=== PATIENT | male | born 1935 | race Caucasian/White ===

== ENCOUNTER → 2016-11-08 | Outpatient (CLI) | payer OTHER, MEDICARE ==
[~2016-11-08] MED LIST: ACIPHEX 20 MG T20 MG PO; ADULT LOW DOSE81 MG PO; APAP500 PO; ATENOLOL 25 MG25 M1 PO; BIOTIN5 MG PO; CALCIUM 600 +1 EA13 PO; CELLCEPT500 MG PO; CRESTOR10 MG PO; DESYREL100 MG PO; FISH OIL 1,0001 EAC5 PO; FLOMAX0.4 MG PO; LEXAPRO 10 MG T10 M1 PO; LORTAB 5 MG/5001 TA1 PO; MOBIC15 MG PO; MOBIC7.5 MG PO; NORTRIPTYLINE H25 M3 PO; PLAVIX 75 MG TA75 MG PO; PREDNISONE 5 MG5 M1 PO; PROSCAR 5MG TABL5 MG PO; SIMVASTATIN40 MG PO; SYMBICORT160 MCG/4. INH; TIZANIDINE HCL 22 M1 PO; TRAMADOL 50 MG50 MG PO; TRAZODONE 150150 M1 PO; UNICOMPLEX M TA1 TA1 PO; VESICARE10 M1 PO; VITAMIN D2000 UNIT PO
== END ==
LOC: RAD 14:10
DX: M16.12 Unilateral primary osteoarthritis, left hip (principal); M25.552 Pain in left hip

== ENCOUNTER → 2017-03-03 | Outpatient (CLI) | payer OTHER, MEDICARE | LOC: HYPER 08:29 | DX: I87.2 Venous insufficiency (chronic) (peripheral) (principal); L97.822 Non-pressure chronic ulcer of other part of left lower leg with fat layer exposed; M35.3 Polymyalgia rheumatica; I25.10 Atherosclerotic heart disease of native coronary artery without angina pectoris; M81.0 Age-related osteoporosis without current pathological fracture; J44.9 Chronic obstructive pulmonary disease, unspecified; Z87.891 Personal history of nicotine dependence; Z72.89 Other problems related to lifestyle ==

== ENCOUNTER → 2017-03-04 | Outpatient (CLI) | payer OTHER, MEDICARE | LOC: RAD 12:02 | DX: J98.11 Atelectasis (principal); R06.00 Dyspnea, unspecified; K44.9 Diaphragmatic hernia without obstruction or gangrene ==

== ENCOUNTER → 2017-03-13 | Outpatient (CLI) | payer OTHER, MEDICARE | LOC: RAD 09:04 | DX: R06.00 Dyspnea, unspecified (principal) ==

== ENCOUNTER → 2017-03-17 | Outpatient (CLI) | payer OTHER, MEDICARE ==
--- NOTE | ~2017-03-17 | EKG ---
[address] [address] ELECTROCARDIOGRAM REPORT Name: MONIQUE GOFF Room #: REG CLI Chase#: [id number] Admission: 03/17/17 Attend Phys: Jun Cohen MD Discharge: Date of : 31 Report #: [id number] THIS REPORT FOR: //name// [facility] Test Date: 2017-03-25 Test Time: 06:18:30 Pat Name: MONIQUE GOFF Department: Room: Gender: Refractory Repairer: Aleida : 1935 Requested By: Jun Cohen Order Number: [id number] MD: Arvin Cole Measurements Intervals [place] Rate: 80 P: 70 NC: 192 QRS: -23 QRSD: 143 T: 71 QT: 446 QTc: 515 Interpretive Statements Sinus rhythm Left bundle branch block Compared to ECG 11/07/2014 11:05:30 Left bundle-branch block now present Electronically Signed On 03-26-2017 8:15:49 CDT by Arvin Cole [email or web address] <ELECTRONICALLY SIGNED> By: Arvin Cole MD, [facility] 03/26/17814 7 7 Arvin Cole MD, FAC /EPI
--- NOTE | ~2017-03-17 | EKG ---
[address] [address] ELECTROCARDIOGRAM REPORT Name: MONIQUE GOFF Room #: REG CLAnnamaria Mckenna#: [id number] Admission: 03/17/17 Attend Phys: Jun Cohen MD Discharge: Date of : 33 Report #: [id number] THIS REPORT FOR: //name// [facility] Test Date: 2017-03-25 Test Time: 06:18:30 Pat Name: MONIQUE GOFF Department: Room: Gender: Treasury Associate: Aleida : 1935 Requested By: Jun Cohen Order Number: [id number] MD: Measurements Intervals [place] Rate: 80 P: 70 [place]: 192 QRS: -23 QRSD: 143 T: 71 QT: 446 QTc: 515 Interpretive Statements Sinus rhythm Left bundle branch block Compared to ECG 11/07/2014 11:05:30 Left bundle-branch block now present Electronically Signed On 03-26-2017 8:15:49 CDT by Arvin Cole [email or web address] By: [id number] 7 Epiphany Epiphany, /EPI
== END ==
LOC: HYPER 07:03
DX: I87.2 Venous insufficiency (chronic) (peripheral) (principal); L97.822 Non-pressure chronic ulcer of other part of left lower leg with fat layer exposed; I25.10 Atherosclerotic heart disease of native coronary artery without angina pectoris; M35.3 Polymyalgia rheumatica; Z85.21 Personal history of malignant neoplasm of larynx; M81.0 Age-related osteoporosis without current pathological fracture; J44.9 Chronic obstructive pulmonary disease, unspecified; Z87.891 Personal history of nicotine dependence; Z72.89 Other problems related to lifestyle

== ENCOUNTER → 2017-04-09 | Outpatient (CLI) | payer OTHER, MEDICARE | LOC: HYPER 06:46 | DX: L97.822 Non-pressure chronic ulcer of other part of left lower leg with fat layer exposed (principal); M35.3 Polymyalgia rheumatica; I25.10 Atherosclerotic heart disease of native coronary artery without angina pectoris; M81.0 Age-related osteoporosis without current pathological fracture; J44.9 Chronic obstructive pulmonary disease, unspecified; Z87.891 Personal history of nicotine dependence; Z72.89 Other problems related to lifestyle ==

== ENCOUNTER → 2017-05-21 | Outpatient (CLI) | payer OTHER, MEDICARE | LOC: CAT 13:38 | DX: J84.9 Interstitial pulmonary disease, unspecified (principal); J84.10 Pulmonary fibrosis, unspecified; I77.6 Arteritis, unspecified ==

== ENCOUNTER → 2017-06-17 | Outpatient (CLI) | payer OTHER, MEDICARE ==
[2017-06-17 10:53] VITALS: BP 120/72
== END ==
LOC: PUL 10:24
DX: J84.10 Pulmonary fibrosis, unspecified (principal)

== ENCOUNTER → 2017-08-22 | Outpatient (CLI) | payer OTHER, MEDICARE ==
[~2017-08-22] VITALS: Ht 172.7 cm; Wt 77.7 kg
[~2017-08-22] MED LIST changes: +IRON325 PO; +PREDNISONE 10 M10 MG PO; +TENORMIN25 MG PO; -TRAZODONE 150150 M1 PO; +TRAZODONE HCL50 MG PO; +TROSPIUM CHLORI20 MG PO; +ZANTAC 150MG T150 MG PO; +ZOLOFT25 MG PO
--- NOTE | ~2017-08-22 | HPC ---
[facility] [address] [place] [address] PAIN MANAGEMENT CONSULTATION Name: MONIQUE GOFF Eda Room #: REG [facility] Clarisa#: [id number] Admission: 08/22/17 Attend Phys: Chandan Das DO Discharge: Date of : 33 Report #: [id number] THIS REPORT FOR: //name// CC: Austin Das The patient is an 82-year-old gentleman, prior seen in pain clinic nearly a year and a half ago in 05/2016. Diagnosed prior with axial back pain with compression fractures. Had osteoplasties, I believe, at L3, T11 and T12. He had ongoing spinal stenosis actually fairly severe at L4-L5. Appeared to have old compression fracture at L5. I did an epidural injection at L4 with excellent improvement of ongoing back pain and neurogenic claudication type symptoms. He returns to pain clinic today again noting that prior injection had afforded good relief. He is starting to develop increasing pain that is a little different, it is more in the left flank at L4-L5 area, appears to be a little lateral for what I would think compression fracture would reproduce; however, given the prior history, this is an obvious concern. He has significant pulmonary disease as he continued on a baseline of inhaled steroid. He has had oral steroids over time. He notes the pain is a 5 on a VAS, exacerbated with getting out of the car and standing. He gets some relief with heat and ice. He notes he is significantly limited in his functional status. Prior, he had been extremely jewish about exercise, now he is developing neurogenic claudication again as well as significant limitation and function due to his pulmonary status. PHYSICAL EXAMINATION: Shows 82-year-old gentleman, BMI is 26.1 kg/m2. Blood pressure is 133/81, pulse 79 and respiratory rate 16. Presently, room air oxygen saturation is 96%. He carries a pulse oximeter with him. He notes that if he walks more than about 3-5 blocks, saturations decreased to the high 80s. Rises from chair using armrest. Does have a little thoracic kyphosis. Thoracic and lumbar range of motion exacerbates some pain, though no midline tenderness is noted. He is tender in the left paravertebral muscles again from about L4 down. Lower extremity strength is about 4/5 to all muscle groups tested. Straight leg raise is negative, though he does have axial back pain with resistance testing on the left side. Negative Greyson test, negative Gaenslen test. No recent diagnostic studies available for evaluation at this time. ASSESSMENT: 1. Symptomatic lumbar radiculopathy, likely component of neurogenic claudication. 2. Component of left flank pain/axial back pain, may be a component of myofascial versus lumbar spondylitic. 3. History of vertebral compression fractures. [facility] [address] [place] [address] PAIN MANAGEMENT CONSULTATION Name: MONIQUE GOFF Room #: REG CLAnnamaria Mckenna#: [id number] Admission: 08/22/17 Attend Phys: Chandan Das DO Discharge: Date of : 33 Report #: [id number] RECOMMENDATIONS: After a long discussion with the patient, we elected to repeat MRI of the lumbar spine. His prior presentation when he had compression fractures at T11, T12 and L3 was not classic at all. I am hopeful that if there is an early compression fracture noted, we can get this addressed. If, however, there are no acute compression fractures, we can move forward with either epidural injection under fluoroscopy for consideration for neurogenic claudication component or facet injections for lumbar spondylosis and facet mediated pain. Thanks for allowing me to participate in the patient's care. He was seen for prolonged visit. About 25 minutes were spent reviewing his medical history, physical exam and interval health history. Greater than 50% of the time was spent in counseling the patient. Ordered MRI of the lumbar spine. We will follow up next week for interventional therapy as indicated. <ELECTRONICALLY SIGNED> By: Chandan Das DO 08/25/17 0816 1241 [id number] Chandan Das DO /nt
[2017-08-22 14:29] VITALS: BP 133/81
== END ==
LOC: PAIN 06:53
DX: M54.16 Radiculopathy, lumbar region (principal); Z87.81 Personal history of (healed) traumatic fracture

== ENCOUNTER → 2017-08-25 | Outpatient (CLI) | payer OTHER, MEDICARE | LOC: MRI 07:33 | DX: M54.16 Radiculopathy, lumbar region (principal); M51.27 Other intervertebral disc displacement, lumbosacral region; M47.896 Other spondylosis, lumbar region; M47.897 Other spondylosis, lumbosacral region; I77.6 Arteritis, unspecified ==

== ENCOUNTER → 2017-08-28 | Outpatient (CLI) | payer OTHER, MEDICARE ==
[~2017-08-28] VITALS: Ht 167.6 cm; Wt 77.2 kg
--- NOTE | ~2017-08-28 | HPC ---
[facility] [place] [address] PAIN MANAGEMENT CONSULTATION Name: MONIQUE GOFF Eda Room #: REG Annamaria Mckenna#: [id number] Admission: 08/28/17 Attend Phys: Chandan Das DO Discharge: Date of : 33 Report #: [id number] THIS REPORT FOR: //name// CC: Austin Das HISTORY OF PRESENT ILLNESS: The patient is a very pleasant 82-year-old gentleman, prior seen for symptomatic lumbar radiculopathy secondary to spinal stenosis, axial back pain and history of vertebral compression fractures. He had prior been seen back in 2015, given epidural injection with ongoing improvement of radicular pain. He subsequently has had multiple compression fractures, osteoplasties, I believe, at T10 and L3. Old compression fractures at L1 and L2. He was seen in the pain clinic 08/22/2017 after a fairly long hiatus. He notes pain has recurred in the low back. It was radiating down around the left low back and in L3 distribution pattern in the back, with some going into the groin. He is noticing neurogenic claudication symptoms. With his history of compression fractures, which initially had a fairly benign presentation, I did order another MRI; this was accomplished, 08/25/2017. This image was compared to the prior study from 04/29/2016. Findings had noted the aforementioned L3 osteoplasty and the old L1 and L2 compression fractures (T11 old osteoplasty). Has fairly significant loss of disk height at L3-L4, severe left greater than right neural foraminal stenosis with significant DJD at this level. Bilateral neural foraminal stenosis below this at L4-L5 and L5-S1 as well; the latter 2 were greater right than left. I reviewed the findings with the patient today. After a long discussion, we elected to proceed with left L3-L4 transforaminal epidural injection to help with the left L3 radicular pain pattern. Follow up in 3 weeks for evaluation. May consider midline epidural injection if this does not afford adequate relief. ASSESSMENT: Symptomatic lumbar radiculopathy, left L3 pattern. RECOMMENDATION: Left L3-L4 transforaminal epidural injection under fluoroscopy today. PROCEDURE: Transforaminal lumbar epidural injection under fluoroscopy. PROCEDURE NOTE: After both written and informed consent was obtained including risk of spinal cord damage, infection, increased pain and paralysis, the patient agreed to proceed. The patient was taken to the fluoroscopy suite, placed in a prone position with appropriate abdominal bolstering. After sterile prep with ChloraPrep and sterile drape, a skin wheal with 1% Xylocaine was raised. A 22 gauge 4-1/2 inch epidural Tuohy needle was inserted. From an oblique approach [address] [address] PAIN MANAGEMENT CONSULTATION Name: MONIQUE GOFF Room #: REG YASH Mckenna#: [id number] Admission: 08/28/17 Attend Phys: Chandan Das DO Discharge: Date of : 33 Report #: [id number] into the posterior-superior aspect of the left L3-L4 neural foramen with continuous pressure on the glass syringe plunger for loss of resistance. Glass syringe was filled with 2 cc of 0.1 Xylocaine. The glass loss of resistance syringe was removed. A low volume extension tubing was connected, negative aspiration was accomplished for cerebrospinal fluid or blood. 1 mL of Omnipaque was injected which showed spread both within the epidural space and laterally along the nerve root. This was followed with 80 mg of triamcinolone plus 1 mL of 1.5% preservative-free Xylocaine. Needle was partially withdrawn, 0.5 mL of Xylocaine was injected to clear the needle and the needle was removed. The area was cleansed, band-aid was applied. The patient was allowed to ambulate to the recovery room, discharged in good and stable condition. <ELECTRONICALLY SIGNED> By: Chandan Das DO 08/29/17 0725 0858 1008 Chandan Das DO /nt
[2017-08-28 08:28] VITALS: BP 131/75
== END | disposition home or self-care (01) ==
LOC: PAIN 06:40
DX: M54.16 Radiculopathy, lumbar region (principal); M48.061 Spinal stenosis, lumbar region without neurogenic claudication; Z98.890 Other specified postprocedural states

== ENCOUNTER → 2017-12-23 | Outpatient (CLI) | payer OTHER, MEDICARE ==
[~2017-12-23] MED LIST changes: -IRON325 PO; -PREDNISONE 10 M10 MG PO; -TENORMIN25 MG PO; +TRAZODONE 150150 M1 PO; -TRAZODONE HCL50 MG PO; -TROSPIUM CHLORI20 MG PO; -ZANTAC 150MG T150 MG PO; -ZOLOFT25 MG PO
== END ==
LOC: MRI 07:45
DX: M47.896 Other spondylosis, lumbar region (principal); M48.061 Spinal stenosis, lumbar region without neurogenic claudication; M46.06 Spinal enthesopathy, lumbar region; M25.78 Osteophyte, vertebrae; N28.1 Cyst of kidney, acquired

== ENCOUNTER → 2017-12-25 | Outpatient (CLI) | payer OTHER, MEDICARE ==
[~2017-12-25] VITALS: Ht 170.2 cm; Wt 74.9 kg
[~2017-12-25] MED LIST changes: +PREDNISONE 10 M10 MG PO; +TENORMIN25 MG PO; +ZOLOFT25 MG PO
--- NOTE | ~2017-12-25 | HPC ---
[facility] [place] [place] [address] PAIN MANAGEMENT CONSULTATION Name: MONIQUE GOFF [facility] [id number] Admission: 12/25/17 Attend Phys: Chandan Das DO Discharge: Date of : 33 Report #: [id number] THIS REPORT FOR: //name// CC: Austin Das PROCEDURE: Transforaminal epidural injection under fluoroscopy. INDICATION: Symptomatic lumbar radiculopathy secondary to spinal stenosis. The patient was given a left L3-L4 transforaminal epidural injection on 08/28/2017, with overall improvement in baseline pain. Pain began to recur. Given his prior history of vertebral compression fractures, he did follow up with Dr. Mayito Ghotra. MRI from 12/23/2017, notes no acute compression fractures. Severe multilevel lumbar spondylosis, findings are not significantly changed from prior study 08/25/2017. Severe spinal stenosis present at L3-L4 and L4-L5. Dr. Ghotra recommended he follow up with me for repeat injection similar to the 08/28/2017, L3-L4 transforaminal epidural injection. The patient returns to pain clinic today, symptoms again are similar, pain in the left low back appears to be neurogenic claudication type scenario. Slight decreased left hip flexion strength. ASSESSMENT: Symptomatic lumbar radiculopathy secondary to spinal stenosis. RECOMMENDATIONS: Left L3-L4 transforaminal epidural injection under fluoroscopy. Follow up simply as needed. PROCEDURE: Transforaminal epidural injection under fluoroscopy. PROCEDURE NOTE: After both written and informed consent was obtained including risk of spinal cord damage, infection, increased pain and paralysis, the patient agreed to proceed. The patient was taken to the fluoroscopy suite, placed in a prone position with appropriate abdominal bolstering. After sterile prep with ChloraPrep and sterile drape, a skin wheal with 1% Xylocaine was raised. A 22 gauge 4-1/2 inch epidural Tuohy needle was inserted. From an oblique approach into the posterior-superior aspect of the left L3-L4 neural foramen with continuous pressure on the glass syringe plunger for loss of resistance. Glass syringe was filled with 2 cc of 0.1 Xylocaine. The glass loss of resistance syringe was removed. A low volume extension tubing was connected, negative aspiration was accomplished for cerebrospinal fluid or blood. 1 mL of Omnipaque was injected which showed spread both within the epidural space and laterally along the nerve root. This was followed with 60 mg of triamcinolone plus 1 mL of 1.5% preservative-free Xylocaine. Needle was partially withdrawn, 0.5 mL of Xylocaine was injected to clear the needle and the needle was removed. The [address] [address] PAIN MANAGEMENT CONSULTATION Name: MONIQUE GOFF Room #: REG CLAnnamaria Mckenna#: [id number] Admission: 12/25/17 Attend Phys: Chandan Das DO Discharge: Date of : 33 Report #: [id number] was cleansed, band-aid was applied. The patient was allowed to ambulate to the recovery room, discharged in good and stable condition. <ELECTRONICALLY SIGNED> By: Chandan Das DO 12/26/17 0656 1307 1342 Chandan Das DO /nt
[2017-12-25 10:50] VITALS: BP 149/92
== END | disposition home or self-care (01) ==
LOC: PAIN 07:16
DX: M48.061 Spinal stenosis, lumbar region without neurogenic claudication (principal); M54.16 Radiculopathy, lumbar region; G89.29 Other chronic pain; Z98.890 Other specified postprocedural states; Z87.891 Personal history of nicotine dependence; Z79.82 Long term (current) use of aspirin; Z79.899 Other long term (current) drug therapy; Z87.09 Personal history of other diseases of the respiratory system

== ENCOUNTER → 2018-05-26 | Outpatient (CLI) | payer OTHER, MEDICARE ==
[~2018-05-26] VITALS: Ht 167.6 cm; Wt 74.5 kg
[~2018-05-26] MED LIST changes: +IRON325 PO; -TRAZODONE 150150 M1 PO; +TRAZODONE HCL50 MG PO; +TROSPIUM CHLORI20 MG PO; +ZANTAC 150MG T150 MG PO
--- NOTE | ~2018-05-26 | HPC ---
[facility] [place] [address] PAIN MANAGEMENT CONSULTATION Name: SHELLMONIQUE Eda [facility] [id number] Admission: 05/26/18 Attend Phys: Wero Das DO Discharge: Date of : 33 Report #: [id number] THIS REPORT FOR: //name// CC: Wero Tian MD DATE OF SERVICE: 05/26/2018 REFERRING PHYSICIAN: Austin Tian MD. CHIEF COMPLAINT: Right low back pain, right lower extremity pain with paresthesias. HISTORY OF PRESENT ILLNESS: As you know, the patient is an 82-year-old male who has been followed by my partner, Dr. Chandan Das, receiving transforaminal epidural injections at the 3-4 level to address ongoing pain issues secondary to severe spinal stenosis at that level. He returns today in followup visit with now onset of right low back pain, right lower extremity pain, for which he places pain score at 5/10. He returns to undergo right L3-L4 transforaminal epidural injection under fluoroscopic guidance as he had noted good benefit with the past transforaminal injection of 12/25/2017 affecting the left side pain. The patient states pain is chronic, describes the pain as sharp, aching, stabbing, numbness and tingling, indicates actively moving and walking exacerbate symptoms, lying down, seated position tends to improve pain, as does a previous transforaminal epidural injections, which provided 50-60% improvement in overall pain. He returns today in followup visit to undergo a right L3-L4 transforaminal epidural injection. ALLERGIES: No known drug allergies. CURRENT MEDICATIONS: Ranitidine, ferrous sulfate, sertraline, prednisone, calcium carbonate, finasteride, mycophenolate, trazodone, lovastatin, aspirin. SOCIAL HISTORY: The patient denies tobacco, alcohol, IV or illicit drug use. He is retired, retired years ago, unaccompanied today. IMAGING: No new imaging available. PQRS: The patient has osteoarthritis of low back, bilateral hips, bilateral knees. No rheumatoid arthritis. He is placing pain intensity at 5/10. He is not a fall risk, has not had a fall in the last 3 months. He is not on blood thinners. He is not treated for hypertension. He is not on any opioids, low risk for opioid addiction. His pain impact is 35/70 moderate. PHYSICAL EXAMINATION: [facility] [address] [place] [address] PAIN MANAGEMENT CONSULTATION Name: MONIQUE GOFF Room #: REG CLI [facility]#: [id number] Admission: 05/26/18 Attend Phys: Wero Das DO Discharge: Date of : 33 Report #: [id number] VITAL SIGNS: Blood pressure 160/78, pulse 85, respiratory rate 20 and unlabored. The patient is 98% on room air. Height 5 feet 6 inches tall, weight 164.2 pounds, BMI calculated 26.5. GENERAL: Well-developed, well-nourished, well-hydrated 82-year-old male, appearing stated age, placing current pain score at 5/10. HEENT: Normocephalic, atraumatic. Pupils equal, round, reactive to light. EXTREMITIES: Show no clubbing, no cyanosis, no edema. MUSCULOSKELETAL: The patient has pain with standing and walking, located on the right side with radiation towards the L4 dermatome on the right. Seated straight leg raising negative. Supine straight leg raising negative. Greyson test negative. Modified Gaenslen's positive for axial low back pain. Ankle clonus negative. Babinski is negative. Muscle bulk and tone equal and symmetrical in lower extremities. ASSESSMENT: 1. Lumbar radiculopathy. 2. Spinal stenosis of the lumbar spine. 3. 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 4. Lumbosacral spondylosis with radiculopathy. 5. Neural foraminal stenosis of the lumbar spine. 6. Facet arthropathy of the lumbar spine. 7. Lumbar degeneration. 8. Chronic and intractable pain. PLAN: 1. The patient returns today in followup visit having noted about 50-60% improvement in overall pain with previous transforaminal epidural injections to address left-sided radicular symptoms. The patient now is experiencing right-sided radicular symptoms, which began without inciting injury or trauma. Distribution appears to be similar to that seen on the left, but only involving right side at this time, which would correlate with the findings at the L3-L4 level from central canal stenosis standpoint. The patient has been consented and will perform transforaminal epidural injection on the right side today. The patient was advised risks and benefits, states understood and wished to proceed. 2. No medication changes made at today's visit. The patient to continue current medical therapy as previously prescribed. 3. We will see the patient back in followup visit on an as needed basis for possible next in the series of epidural injections. PROCEDURE NOTE DESCRIPTION OF PROCEDURE: Right L3-L4 transforaminal epidural injection under fluoroscopic guidance. This is the third procedure of the first series, the patient is undergoing. [address] [address] PAIN MANAGEMENT CONSULTATION Name: MONIQUE GOFF Room #: REG CLAnnamaria Mckenna#: [id number] Admission: 05/26/18 Attend Phys: Wero EdaWill Das, Discharge: Date of : 33 Report #: [id number] After obtaining written consent, the patient was taken back to the fluoroscopy suite, placed in a prone position with pillow under the abdomen to decrease lumbar lordosis. Skin overlying the lumbosacral area was then prepped and draped in aseptic fashion. The L3-4 vertebrae were identified by fluoroscopy. The neural foramen (6 o'clock position of the pedicle) was then identified utilizing an oblique fluoroscopic view. The skin and subcutaneous tissue overlying the target site of injection was then anesthetized with 3 mL of 1% lidocaine. Using a "tunnel view," a 22-gauge 3-1/2 inch Tuohy needle with a bent tip was advanced towards the right epidural space under fluoroscopic guidance. The final position of the needle was identified using AP and lateral views. There were no paresthesias with final positioning of the needle. After negative aspiration for heme or cerebrospinal fluid, a total of 0.4 mL of Omnipaque was injected under live AP fluoroscopy to demonstrated absence of vascular uptake. AP and lateral imaging demonstrated an excellent L4 neurogram, epidurogram. Pain provocation by the injected contrast material was negative. After negative aspiration for heme or cerebrospinal fluid, 3 mL of a solution containing 1 mL 40 mg per mL, 40 mg total triamcinolone, 2 mL bupivacaine 0.5% was injected in increments. The needle was then retracted approximately long-term and the needle tract flushed with 1 mL of 1% lidocaine. A sterile bandage placed over the injection site. There were no new motor deficits present in the lower extremities following the procedure. The heart rate, pulse oximetry and blood pressure were continuously monitored after the procedure. There were no apparent complications. The patient tolerated the procedure well and was carefully escorted to the recovery room in stable condition. The VAS was before the procedure and 10 minutes after the procedure. After meeting discharge criteria, the patient was discharged home. By: [id number] Wero Das DO /lanette
[2018-05-26 10:26] VITALS: BP 160/78
== END | disposition home or self-care (01) ==
LOC: PAIN 06:16
DX: M51.16 Intervertebral disc disorders with radiculopathy, lumbar region (principal); M47.27 Other spondylosis with radiculopathy, lumbosacral region; M48.061 Spinal stenosis, lumbar region without neurogenic claudication; M46.96 Unspecified inflammatory spondylopathy, lumbar region; G89.29 Other chronic pain; M19.90 Unspecified osteoarthritis, unspecified site; Z79.899 Other long term (current) drug therapy; Z87.891 Personal history of nicotine dependence; Z79.82 Long term (current) use of aspirin

== ENCOUNTER → 2019-03-01 | Outpatient (CLI) | payer OTHER, MEDICARE | LOC: HYPER 06:55 | DX: I87.312 Chronic venous hypertension (idiopathic) with ulcer of left lower extremity (principal); L97.821 Non-pressure chronic ulcer of other part of left lower leg limited to breakdown of skin; I25.10 Atherosclerotic heart disease of native coronary artery without angina pectoris; M81.0 Age-related osteoporosis without current pathological fracture; M35.3 Polymyalgia rheumatica; J44.9 Chronic obstructive pulmonary disease, unspecified; Z87.891 Personal history of nicotine dependence ==

== ENCOUNTER → 2019-06-10 | Outpatient (CLI) | payer OTHER, MEDICARE | LOC: ULTRA 07:50 | DX: K44.9 Diaphragmatic hernia without obstruction or gangrene (principal); K21.9 Gastro-esophageal reflux disease without esophagitis; J84.9 Interstitial pulmonary disease, unspecified; M41.86 Other forms of scoliosis, lumbar region; M47.816 Spondylosis without myelopathy or radiculopathy, lumbar region; K22.2 Esophageal obstruction ==

== ENCOUNTER → 2019-07-08 | Day surgery (SDC) | payer OTHER, MEDICARE ==
[~2019-07-08] VITALS: Ht 175.3 cm; Wt 71.7 kg
[~2019-07-08] MED LIST changes: +PRILOSEC OTC20 MG PO
[2019-07-08 11:29] VITALS: BP 107/89
--- NOTE | 2019-07-12 06:15 | O ---
[facility] [place] [address] OPERATIVE REPORT Name: MONIQUE GOFF Room #: REG [employer]#: [id number] Admission: 07/08/19 Attend Phys: Marcus Villalobos MD Discharge: Date of : 33 Report #: [id number] THIS REPORT FOR: //name// CC: Dr. Chago Villalobos DATE OF SERVICE: 07/08/2019 SURGEON: Marcus Villalobos MD PACKAGING OPERATOR: None. PREOPERATIVE DIAGNOSIS: Bilateral lower lid ectropion. POSTOPERATIVE DIAGNOSIS: Bilateral lower lid ectropion. OPERATION PERFORMED: Bilateral lower lid ectropion repair. ANESTHESIA: Local with IV sedation. COMPLICATIONS: None. INDICATIONS FOR PROCEDURE: This patient has bilateral acquired lower lid ectropion with chronic tearing, keratopathy and discharge. The current procedures are undertaken in order to improve the patient's visual function, lacrimal outflow, and level of comfort. Informed consent was obtained to include but not limit to the risk of loss of vision, bleeding, infection, scarring, failure to improve the problem and need for further surgery. DESCRIPTION OF OPERATION: The patient was taken to the operating room where 2% Xylocaine with epinephrine mixed with equal parts of 0.75% Marcaine with Wydase was administered transcutaneously and transconjunctivally to each lower lid and lateral canthal area. The patient was then prepped and draped in the usual sterile fashion. A Yudith clamp was then used to clamp the left lateral canthus following which a sharp canthotomy and cantholysis were performed. The tarsal strip was prepared laterally, removing the lash bearing portion of the redundant lid margin and the redundant tarsal plate. Hemostasis was achieved with a monopolar cautery, as it was throughout the case. The tarsal strip was then secured to the internal portion of the lateral orbital tubercle with two interrupted 5-0 Prolene sutures. The lateral canthal angle was sharply reformed as the subcutaneous structures and the skin were closed with multiple interrupted 6-0 plain gut sutures. Attention was then turned to the right side where the same procedure was [facility] [address] [place] [address] OPERATIVE REPORT Name: MONIQUE GOFF Room #: REG [facility].#: [id number] Admission: 07/08/19 Attend Phys: Marcus Villalobos MD Discharge: Date of : 33 Report #: [id number] performed. The wounds were cleaned and dressed with ophthalmic antibiotic ointment. The patient was then transported to the recovery area, having tolerated the procedure well with no anesthetic or operative complications being noted. <ELECTRONICALLY SIGNED> By: Marcus Villalobos MD 07/12/19 0615 1027 1105 Marcus Villalobos MD /nt
== END | disposition home or self-care (01) ==
LOC: OR 09:09
DX: H02.105 Unspecified ectropion of left lower eyelid (principal); H02.102 Unspecified ectropion of right lower eyelid; I25.2 Old myocardial infarction; E78.5 Hyperlipidemia, unspecified; D64.9 Anemia, unspecified; G47.30 Sleep apnea, unspecified; K21.9 Gastro-esophageal reflux disease without esophagitis; Z98.890 Other specified postprocedural states; Z85.21 Personal history of malignant neoplasm of larynx; Z79.899 Other long term (current) drug therapy; Z87.891 Personal history of nicotine dependence; Z79.82 Long term (current) use of aspirin
CPT/HCPCS: 50010; 50101; 50386; 50398; 51636; 56527; 56531; 62110; 62850; 70005

== ENCOUNTER → 2019-08-23 | Outpatient (CLI) | payer OTHER, MEDICARE | LOC: SJCVC 11:16 | DX: I45.10 Unspecified right bundle-branch block (principal); R94.31 Abnormal electrocardiogram [ECG] [EKG]; I11.9 Hypertensive heart disease without heart failure; I25.10 Atherosclerotic heart disease of native coronary artery without angina pectoris; E78.5 Hyperlipidemia, unspecified; I25.2 Old myocardial infarction; G47.33 Obstructive sleep apnea (adult) (pediatric); E55.9 Vitamin D deficiency, unspecified; Z79.82 Long term (current) use of aspirin; Z79.899 Other long term (current) drug therapy; Z87.891 Personal history of nicotine dependence ==

== ENCOUNTER → 2019-09-22 | Outpatient (CLI) | payer OTHER, MEDICARE | LOC: MRI 13:14 | DX: M47.26 Other spondylosis with radiculopathy, lumbar region (principal); M48.56XA Collapsed vertebra, not elsewhere classified, lumbar region, initial encounter for fracture; M43.16 Spondylolisthesis, lumbar region; M48.061 Spinal stenosis, lumbar region without neurogenic claudication; M51.16 Intervertebral disc disorders with radiculopathy, lumbar region; Z87.81 Personal history of (healed) traumatic fracture; M48.07 Spinal stenosis, lumbosacral region ==

== ENCOUNTER → 2019-09-28 | Outpatient (CLI) | payer OTHER, MEDICARE ==
[~2019-09-28] VITALS: Ht 165.1 cm; Wt 70.6 kg
[2019-09-28 11:00] VITALS: BP 150/69
--- NOTE | 2019-09-28 11:12 | NUR ---
Pain Clinic Assessment: 1. History of Osteoarthritis: SPINE History of Rheumatoid Arthritis: DENIES 2. Height: 5 ft. 5 in. 165.1 cm. Weight: 155.6 lb. oz. 70.580 kg. Patient's BMI: 25.9 3. Vital Signs: BP: 150/69 Pulse: 66 Resp: 18 Temp: 02 Sat: 97 ECG Mon: 4. Pain Intensity: 5 5. Fall Risk: Dizziness: N Needs help standing or walking: Y Fallen in the last 3 months: N Fall risk comments: 6. Patient on Blood Thinner: None 7. History of Hypertension: N 8. Opioid Therapy greater than 6 weeks: N Opiate Contract Signed: 9. Risk Assessment Tool Provided: LOW RISK O/3 10. Functional Assessment Tool: 11. Recreational Drug Use: Never Drug Type: Tobacco Use: Former Smoker Tobacco Type: Amount or Packs/day: How Many Years: Alcohol Use: Yes Frequency: Quant:
--- NOTE | 2019-10-05 08:27 | O ---
[facility] [place] [address] OPERATIVE REPORT Name: MONIQUE GOFF [id number] Admission: 09/28/19 Attend Phys: Wero Das DO Discharge: Date of : 33 Report #: [id number] THIS REPORT FOR: cc: Austin Tian MD, Neal A. MD Johnson, James E. DO ~ DATE OF SERVICE: 09/28/2019 PROCEDURE NOTE DESCRIPTION OF PROCEDURE: L5-S1 right paramedian epidural steroid injection under fluoroscopic guidance. This is the first procedure of the third series that the patient is undergoing. After obtaining written consent, the patient was taken back to the fluoroscopy suite, placed in a prone position with pillow under the abdomen to decrease lumbar lordosis. The skin overlying the lumbosacral area was then prepped and draped in aseptic fashion. The L5-S1 vertebral interspace was then identified by AP fluoroscopy. The skin and subcutaneous tissue overlying the target site of injection was anesthetized with 3 mL 1% lidocaine. A 20-guage Tuohy needle was then advanced under fluoroscopic guidance towards the epidural space using a right paramedian approach. The epidural space was identified using loss of resistance to air technique. After negative aspiration for heme or cerebrospinal fluid, a total of 1 mL of Omnipaque was injected. A lumbar epidurogram was confirmed using both AP and lateral fluoroscopy. After negative aspiration for heme or cerebrospinal fluid, 5 mL of solution containing 2 mL 40 mL per mL, 80 mg of total triamcinolone along with 3 mL of lidocaine 1% was injected in increments. Contrast spread was noted posterior epidural space. The needle was then retracted approximately half way and needle tract flushed with 1 mL of 1% lidocaine. Needle was then removed. There were no apparent sensory or motor deficits in the lower extremity following the procedure. A sterile bandage was placed over the injection site. The heart rate, pulse, oximetry and blood pressure were continuously monitored after the procedure. There were no apparent complications. The patient tolerated the procedure well and was carefully escorted to the recovery room in stable condition. There were no apparent complications. After meeting discharge criteria, the patient was then discharged home. <ELECTRONICALLY SIGNED> By: Wero Das DO 10/05/19 0827 1230 1938 Wero Das DO /nt
--- NOTE | 2019-10-05 08:27 | HPC ---
[address] [place] [address] PAIN MANAGEMENT CONSULTATION Name: MONIQUE GOFF Eda Room #: REG YASH Clarisa#: [id number] Admission: 09/28/19 Attend Phys: Wero Das DO Discharge: Date of : 33 Report #: [id number] THIS REPORT FOR: cc: Austin Tian MD, Neal A. MD Johnson, James E. DO ~ DATE OF SERVICE: 09/28/2019 REFERRING PHYSICIAN: Dr. Austin Tian CHIEF COMPLAINT: Right low back pain, right lower extremity pain with paresthesias. HISTORY OF PRESENT ILLNESS: As you know, the patient is an 84-year-old male who returns today in followup visit with recurrent low back pain, right lower extremity pain with paresthesias. The patient recently underwent MRI of the lumbar spine per the request of his orthopedic surgeon that showed changes of progression at the L5-S1 level with right paracentric disk protrusion causing worsening right lateral recess narrowing and right-sided neural foraminal stenosis with effacement of the exiting L5 nerve root. He is also noted to have central canal stenosis at L3-L4 and L4-L5, which has shown to be similar to previous evaluations. The patient has been referred back to our clinic to discuss treatment options for recurrent lumbar radicular symptoms. He is placing his pain at around 5/10. States it is difficult to arise in the morning, his pain does improve with movement, but does return throughout the day. He has been referred back to our clinic to discuss the possibility of undergoing lumbar epidural injection under fluoroscopic guidance to address progressively worsening findings at the L5-S1 level. ALLERGIES: No known drug allergies. CURRENT MEDICATIONS: Aspirin 81 mg per day, trazodone 100 mg p.o. at bedtime, CellCept 500 mg 3 tabs twice a day, finasteride 5 mg once a day, calcium carbonate 1 tab per day, prednisone 10 mg once a day, sertraline 25 mg once a day, ferrous sulfate 325 mg per day, omeprazole 20 mg per day, atenolol 25 mg per day. SOCIAL HISTORY: The patient denies tobacco, alcohol, IV or illicit drug use. He is retired, retired years ago. He is accompanied by his son present in room today. IMAGING: MRI lumbar spine obtained 09/22/2019 shows progression of the findings at the L5-S1 level with right paracentric disk protrusion causing worsening right lateral recess narrowing, right neural foraminal [place] [address] PAIN MANAGEMENT CONSULTATION Name: MONIQUE GOFF Room #: REG CLI Chase#: [id number] Admission: 09/28/19 Attend Phys: Wero Das DO Discharge: Date of : 33 Report #: [id number] of the exiting L5 nerve root. There is multilevel lumbar spondylosis and spinal stenosis noted, greatest at the L3-L4 and L4-L5 level. This is relatively unchanged from previous evaluations. PQRS: The patient has known arthritic changes of the lumbar spine, bilateral hands. No rheumatoid arthritis. The patient is placing pain today at 5/10. He is a fall risk, but has not had a fall in last 3 months. He is not on blood thinners. He reports he is not treated for hypertension. He is not on chronic opioids and does have a low opioid addiction potential. Pain impact score 47/70 indicating severe interference of daily activities secondary to pain. PHYSICAL EXAMINATION: VITAL SIGNS: Blood pressure 150/69, pulse 66, respiratory rate 18 and unlabored. The patient is 97% on room air. Height 5 feet 5 inches tall, weight 155.6 pounds, BMI calculated 25.9. GENERAL: Well-developed, well-nourished, well-hydrated kyphotic and somewhat scoliotic 84-year-old male appearing stated age, pain is rated today 5/10. HEENT: Normocephalic, atraumatic. Pupils are equal, round, and reactive to light. Speech is fluent. EXTREMITIES: Show no clubbing, no cyanosis, no edema. MUSCULOSKELETAL: Lower extremity strength appears symmetrical, but deconditioned bilaterally. There is pain elicited with hip flexion, knee extension on the right when compared to left. Seated straight leg raising positive right. Supine straight leg raising positive right. Greyson's test negative. Modified Gaenslen's positive for axial low back pain. Ankle clonus negative. Babinski is negative. Gait is antalgic favoring right lower extremity over left. ASSESSMENT: 1. Symptomatic lumbar radiculopathy. 2. Spinal stenosis of lumbar spine. 3. Displacement of lumbar intervertebral disk with radiculopathy. 4. Lumbosacral spondylosis with radiculopathy. 5. Lateral recess stenosis of the lumbar spine. 6. Neural foraminal stenosis of the lumbar spine. 7. Lumbar degeneration. 8. Chronic intractable pain. PLAN: 1. Based on today's physical exam and history the patient has provided, the description the patient uses in regards to pain, likely source of the patient's symptoms is the lumbar radiculopathy. The patient has had a progression based on his recent MRI, the findings at the L5-S1 level consistent with the patient's symptoms. He has also had possible mild increase in his stenosis at the L3-L4 and L4-L5 level. The patient and I discussed at length the various treatment options we have available for lumbar radicular symptoms. It does appear based [facility] [address] [place] [address] PAIN MANAGEMENT CONSULTATION Name: GOFFMONIQUE Eda Room #: REG CLI Clarisa#: [id number] Admission: 09/28/19 Attend Phys: Wero Das DO Discharge: Date of : 33 Report #: [id number] on today's physical presentation that his symptoms are very similar to when we last saw the patient 2 years ago. At that time, epidural injections worked well for pain control. We also discussed the following with the patient today. We discussed physical therapy, stretching exercises and core strengthening as a treatment option. We discussed medication management, adding neuropathic pain medication and if possible consistent nonsteroidal anti-inflammatory. We discussed epidural injections under fluoroscopic guidance for which the patient was referred to our clinic. We also discussed surgical options including spinal cord stimulator and traditional decompression. After reviewing the risks and benefits of all proposed treatment options, the patient chose to undergo a lumbar epidural injection under fluoroscopic guidance. 2. The patient was advised risks and benefits of a lumbar epidural injection. These risks include but are not necessarily limited to bleeding, bruising, infection, worsening pain, no relief of pain, also risk of temporary or permanent muscle weakness, temporary or permanent nerve damage, possible paralysis, post-dural puncture headache and . The patient states understood and wished to proceed. 2. No medication changes made at today's visit. The patient will continue current medical therapy as previously prescribed. 3. We will see the patient back in followup visit on an as needed basis for possible next in the series of lumbar epidural injections. <ELECTRONICALLY SIGNED> By: Wero Das DO 10/05/19 0827 1230 1937 Wero Das DO /nt
== END | disposition home or self-care (01) ==
LOC: PAIN 08:20
DX: M51.16 Intervertebral disc disorders with radiculopathy, lumbar region (principal); M48.061 Spinal stenosis, lumbar region without neurogenic claudication; M47.27 Other spondylosis with radiculopathy, lumbosacral region; G89.29 Other chronic pain; Z79.891 Long term (current) use of opiate analgesic; Z87.891 Personal history of nicotine dependence

== ENCOUNTER 2019-10-14 08:47 | Inpatient (IN) | payer OTHER, MEDICARE ==
[~2019-10-14] VITALS: Ht 170.2 cm; Wt 66.2 kg
[2019-10-14 08:51] VITALS: BP 122/66
--- NOTE | 2019-10-14 08:53 | NUR ---
PT DAUGHTER STARTED TO BECOME VERBALLY AGRESSIVE WITH STAFF UPON ARRIVAL; SHE STATED THAT BECAUSE DR CARROLL CALLED THEY DIDN'T NEED TO GO THROUGH THE CHECK-IN PROCESS; INFORMED DAUGHTER THAT EITHER WAY, EVEN WITH DR CARROLL CALLING, I HAD NOT BEEN THE ONE TO SPEAK WITH HIM AND THIS IS THE PROCESS WE NEEDED TO GO THROUGH TO GET THE PT CHECKED IN; WHEN THE PT WAS ASKED IF HE WAS FEELING SOA HE POLITELY REPLIED "YES BECAUSE MY LUNGS ARE FULL" AND DAUGHTER STATES "THIS IS RIDICULOUS, HE'S VERY SICK AND NEEDS TO BE TAKEN BACK RIGHT NOW"; DAUGHTER WAS AGAIN INFORMED THAT EITHER WAY THEY NEEDED TO GO THROUGH THE CHECK-IN PROCESS AND WHILE I UNDERSTOOD HER FATHER WAS VERY SICK IT WOULD NOT CHANGE THE FACT THAT WE NEEDED TO ASK THESE QUESTIONS TO PROPERLY GET HIM CHECKED IN.
[2019-10-14 09:18] LABS: ABSOLUTE NEUTROPHILS 5.9 thou/uL (1.4-8.2); EOSINOPHILS 0.7 % (0.0-3.0); HEMATOCRIT 46.5 % (42.0-52.0); HEMOGLOBIN 14.8 gm/dL (14.0-18.0); LYMPHOCYTES 2.5 % (24.0-44.0); MCH 29.4 pg (26.0-34.0); MCHC 31.8 g/dL (28.0-37.0); MCV 92.4 fL (80.0-100.0); MONOCYTES 4.2 % (1.0-8.0); PLATELET COUNT 158 thou/uL (150-400); POLYS 91.6 % (36.0-66.0); RBC 5.03 mil/uL (4.50-6.00); RDW 15.8 % (10.5-14.5); WBC 6.4 thou/uL (4.0-11.0)
[2019-10-14 09:19] LABS: CALCIUM 9.5 mg/dL (8.5-10.1); CREATININE 0.9 mg/dL (0.7-1.3); POTASSIUM 3.7 mmol/L (3.5-5.1)
[2019-10-14 09:25] LABS: ALBUMIN 4.1 g/dL (3.4-5.0); TOTAL BILIRUBIN 0.6 mg/dL (<0.1-1.0); TOTAL PROTEIN 8.1 g/dL (6.4-8.2)
--- NOTE | 2019-10-14 10:09 | NUR ---
ECHOCARDIOGRAM PERSONNEL ARE BEDSIDE.
[2019-10-14 11:53] VITALS: BP 158/85
[2019-10-14 12:08] VITALS: BP 138/56
[2019-10-14 12:38] VITALS: BP 156/90
--- NOTE | 2019-10-14 12:45 | EKG ---
[facility] [address] ELECTROCARDIOGRAM REPORT Name: MONIQUE GOFF Room #: 355-P ADM IN M.R.#: [id number] Admission: 10/14/19 Attend Phys: Austin Tian MD Discharge: Date of : 33 Report #: [id number] THIS REPORT FOR: cc: Austin Tian MD, Neal A. MD Couchonnal, Luis F. MD ~ THIS REPORT FOR: //name// [facility] ED Test Date: 2019-10-14 Test Time: 08:57:48 Pat Name: MONIQUE GOFF Department: Room: [facility] Gender: M College Administrator: GRETA : 1935 Requested By: Lyle Valle Order Number: [id number] MD: Luis De La Rosa Measurements Intervals [place] Rate: 99 P: 14 HI: 161 QRS: -15 QRSD: 133 T: -23 QT: 357 QTc: 459 Interpretive Statements Sinus rhythm Probable left atrial enlargement Right bundle branch block Compared to ECG 11/07/2014 11:05:30 Electronically Signed On 10-14-2019 12:44:46 CDT by Luis De La Rosa [email or web address] <ELECTRONICALLY SIGNED> By: Luis De La Rosa MD 10/14/19 1244 0857 0857 Luis De La Rosa MD /EPI
[2019-10-14 19:31] VITALS: BP 152/86
[2019-10-14 19:54] VITALS: BP 157/86
[2019-10-15 01:15] VITALS: BP 153/84
[2019-10-15 04:32] LABS: URINE BILIRUBIN NEGATIVE (Negative); URINE BLOOD NEGATIVE (Negative); URINE CLARITY CLEAR; URINE COLOR YELLOW; URINE GLUCOSE-RANDOM* NEGATIVE (Negative); URINE KETONES NEGATIVE (Negative); URINE LEUKOCYTES-REFLEX NEGATIVE (Negative); URINE NITRITE-REFLEX NEGATIVE (Negative); URINE PROTEIN (DIPSTICK) NEGATIVE (Negative); URINE SPECIFIC GRAVITY >= 1.030 (1.005-1.035); URINE UROBILINOGEN 0.2 E.U./dl (0.2-1.0)
[2019-10-15 05:36] VITALS: BP 162/91
[2019-10-15 06:03] LABS: HEMATOCRIT 35.1 % (42.0-52.0); MCH 29.4 pg (26.0-34.0); MCHC 31.7 g/dL (28.0-37.0); MCV 92.9 fL (80.0-100.0); RBC 3.78 mil/uL (4.50-6.00); RDW 15.9 % (10.5-14.5); WBC 3.8 thou/uL (4.0-11.0)
--- NOTE | 2019-10-15 06:03 | NUR ---
ASSUMED CARE AT 1900. ALL PATIENT CARES AND VS COMPLETED BY RN TO MINIMIZE ISOLATION EXPOSURE; MAINTAINING DROPLET AND CONTACT PRECAUTIONS. PT C/O HEADACHE WHICH RESOLVED WITH TYLENOL. C/O DRY COUGH, OBTAINED ORDER FOR CODEINE-COUGH SYRUP, GAVE ONCE FOR GOOD RELIEF. DENIED NAUSEA BUT REPORTS HAVING DIARRHEA THE LAST COUPLE OF DAYS WITH TWO LIQUID STOOLS SINCE ADMISSION. WORE CPAP FOR A FEW HOURS OVERNIGHT BEFORE ASKING TO SWITCH BACK OVER TO NC. NO FEVERS NOTED. NO OTHER CONCERNS, WILL CONTINUE TO MONITOR.
[2019-10-15 06:07] LABS: HEMOGLOBIN 11.1 gm/dL (14.0-18.0)
[2019-10-15 06:13] LABS: CREATININE 0.7 mg/dL (0.7-1.3); POTASSIUM 4.5 mmol/L (3.5-5.1)
[2019-10-15 06:15] LABS: CALCIUM 7.4 mg/dL (8.5-10.1)
[2019-10-15 08:00] VITALS: BP 156/79
--- NOTE | 2019-10-15 12:54 | 2DMMODE ---
[facility] [place] [address] 2 D/M-MODE ECHOCARDIOGRAM Name: MONIQUE GOFF Room #: 349-I ADM IN .R.#: [id number] Admission: 10/14/19 Attend Phys: Austin Tian MD Discharge: Date of : 33 Report #: [id number] THIS REPORT FOR: cc: Austin Tian MD, Neal A. MD Lundgren, Craig H. MD [facility] ~ ADDENDUM APPROVED REPORT Study performed: 10/14/2019 10:09:46 EXAM: Comprehensive 2D, Doppler, and color-flow Echocardiogram Patient Location: Bedside Room #: ER Status: routine BSA: 1.77 HR: 96 bpm BP: 159/85 mmHg Rhythm: NSR Other Information Study Quality: Adequate Risk Factors: Cardiac Risk Factors: Hyperlipidemia, HTN Indications Dyspnea CAD Tachycardia Prior OK 2D Dimensions IVSd: 10.31 (7-11mm) LVOT Diam: 22.00 (18-24mm) LVDd: 42.82 mm PWd: 10.86 (7-11mm) Ascending Ao: 30.97 (22-36mm) LVDs: 30.91 (25-40mm) Aortic Root: 39.71 mm LV Single Plane 4CH: 63.36 % LV Single Plane 2CH: 64.68 % Biplane EF: 63.8 % Volumes Left Atrial Volume (Systole) Single Plane 4CH: 55.54 mL Single Plane 2CH: 54.61 mL [facility] [address] [place] [address] 2 D/M-MODE ECHOCARDIOGRAM Name: MONIQUE GOFF Room #: 349-I ADM IN .R.#: [id number] Admission: 10/14/19 Attend Phys: Austin Tian, Discharge: Date of : 33 Report #: [id number] ESV Index: 38.00 mL/m2 Aortic Valve AoV Peak Don.: 1.88 m/s AO Peak Gr.: 17.70 mmHg LVOT Max P.97 mmHg LVOT Max V: 1.12 m/s SHIRA Vmax: 2.15 cm2 Mitral Valve MV Peak Gr.: 18.70 mmHg MV Mean Gr.: 7.58 mmHg E/A Ratio: 0.6 MV Decel. Time: 188.79 ms MV E Max Don.: 1.21 m/s MV A Don.: 1.89 m/s MV Max Don.: 2.16 m/s MV Mean Don.: 1.27 m/s MV VTI: 392.12 mm MV PHT: 54.75 ms IVRT: 65.74 ms Pulmonary Valve PV Peak Don.: 1.21 m/s PV Peak Gr.: 5.87 mmHg Tricuspid Valve TR Peak Don.: 2.47 m/s TR Peak Gr.: 24.36 mmHg Left Ventricle The left ventricle is normal size. There is normal LV segmental wall motion. There is normal left ventricular wall thickness. Left ventricular systolic function is normal. The left ventricular ejection fraction is within the normal range. LVEF is 60-65%. This study is not technically sufficient to allow evaluation of the LV diastolic function. Right Ventricle The right ventricle is normal size. The right ventricular systolic function is normal. Atria The left atrium size is normal. The right atrium size is normal. Aortic Valve The aortic valve is moderately calcified, mild stenosis No aortic regurgitation is present. [facility] [place] [address] 2 D/M-MODE ECHOCARDIOGRAM Name: MONIQUE GOFF Eda Room #: 349-I ADM IN [facility].#: [id number] Admission: 10/14/19 Attend Phys: Austin Tian, Discharge: Date of : 33 Report #: [id number] Mitral Valve Moderate mitral annular calcification. Trace mitral regurgitation. Mild-moderate mitral stenosis. Maximum pressure gradient of 16 mmHg and mean pressure gradient of 7 mmHg. Tricuspid Valve The tricuspid valve is normal in structure. Trace tricuspid regurgitation. Tricuspid regurgitant jet measures 25 mmHg. Pulmonic Valve The pulmonary valve is normal in structure. There is no pulmonic valvular regurgitation. Great Vessels The aortic root is normal in size. The ascending aorta is normal in size. IVC is not well visualized. Pericardium There is no pericardial effusion. <Conclusion> Left ventricular systolic function is normal. There is normal LV segmental wall motion. LVEF is 60-65%. The aortic valve is moderately calcified, mildly stenotic. Aortic valve area 1.8cm2 Moderate mitral annular calcification. Trace mitral regurgitation. Mild mitral stenosis. Maximum pressure gradient of 16 mmHg and mean pressure gradient of 7 mmHg. Pulmonary artery systolic pressure of 30 mmHg There is no pericardial effusion. <ELECTRONICALLY SIGNED> By: Arvin Cole MD, FACC 10/15/19 1253 1253 1253 Arvin Cole MD, FACC /INF
--- NOTE | 2019-10-15 13:37 | NUR ---
Chart reviewed and case discussed with the care team. Assessment completed via phone with the pt's dtr Jaky due to enhanced isolation and pending covid 19 test. Pt's spouse is here as an inpt as well. Pt's dtr indicates that the pt lives with his spouse in the indep living apts at [facility]. He is on continuous home o2 per [facility] d/t lung disease. He is indep with gait and adl's. They eat breakfast and lunch in the community dining area and dinner in their apt. Jaky is very involved and helps with errands and drives them to appts. The pt does have a walker if needed and has been getting PT 2xwkly in the apt. She is not sure of the agency name or if it is through HH or an onsite outpt program there. She indicates that the pt is immunosupressed. CM role introduced. Will follow along for possible hh referral at ar.
[2019-10-15 16:00] VITALS: BP 129/80
[2019-10-15 19:53] VITALS: BP 154/77
--- NOTE | 2019-10-16 00:13 | NUR ---
PT SITTING UP RIGHT IN LOUNGE CHAIR WATCHING TV AND TALKING ON THE PHONE. AMBULATING INDEPENDENTLY STEADY GAIT. ROOM AIR. O2 PER NC FOR HS SLEEP. DECLINED HS SNACK. BRIGHT AFFECT, GOOD EYE CONTACT TALKATIVE AND NOT SOA, NO COUGHING. LUNGS WITH WHEEZES. PT VERBALIZED PLAN OF GOING HOME TOMORROW IF CULTURE RESULTS ARE FINALIZED. PT DISCUSSED HOW HIS IS ON 2FLOOR. PT TALKED TO HIS GRANDSON ON THE PHONE THAT IS ATTENDING GRADUATE SCHOOL AT [employer]. PT VERY TALKATIVE ASKING NURSE QUESTIONS FOR SOCIAL INTERACTION. ENCOURAGED PT TO CALL FOR ASSISTANCE.
[2019-10-16 05:31] VITALS: BP 118/61
--- NOTE | 2019-10-16 05:43 | NUR ---
PT SLEPT THROUGHOUT THE NIGHT, NO COUGHING OR SOA WITH CONVERSATION THIS AM.
[2019-10-16 08:00] VITALS: BP 141/73
[2019-10-16] MEDS ORDERED: CEFDINIR300 MG PO (09:03)
[2019-10-16] MEDS ORDERED: GUAIFEN-CODEINE10 ML PO (09:05)
[2019-10-16] MEDS ORDERED: PREDNISONE 10 M10 MG PO (09:08)
[2019-10-16] MEDS ORDERED: AZITHROMYCIN500 MG PO (09:11)
--- NOTE | 2019-10-16 12:46 | HC ---
[facility] [place] [address] CONSULTATION Name: MONIQUE GOFF Room #: 349-I ADM IN M.R.#: [id number] Admission: 10/14/19 Attend Phys: Austin Tian MD Discharge: Date of : 33 Report #: [id number] THIS REPORT FOR: cc: Austin Tian MD, Neal A. MD Geha, Daniel J. MD ~ CC: Austin Tian DATE OF SERVICE: 10/14/2019 INFECTIOUS DISEASE CONSULTATION REASON FOR CONSULTATION: I was asked to evaluate concerning pneumonia in the setting of pulmonary vasculitis. 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 He lives with his in assisted living [facility]. He presents with 1-week history of progressive shortness of breath associated with nonproductive cough. His has had similar symptoms. They both were hospitalized today because of progressive disease. He has been more short of breath. Unable to walk across the room without discomfort. He is now on oxygen per nasal cannula at 2 liters. He has had associated headache. No change in mental status. No sinus discharge. No oral lesions. Denies any nausea or vomiting, although he has had diarrhea. No dysuria or frequency. Denies any rash or arthritis symptoms. He has had tachycardia and is on beta blockade. He has had no travel outside of his complex. Family members that visit are his daughter and son who have had no respiratory tract infection issues. They have had traveled to [place] and [place] within the recent past. I have discussed with both of them and they are asymptomatic. The patient has been on CellCept and prednisone for his pulmonary vasculitis. He states that his symptoms have been stable for last several months. He has had no recent antibiotic exposure. ALLERGIES: None known. MEDICATIONS: As noted on his MAR, having been given Tamiflu, azithromycin and ceftriaxone through the Emergency Room. Other medications include also nystatin, atenolol, trazodone, iron, aspirin, finasteride, sertraline, trospium, omeprazole, calcium carbonate, vitamin D, CellCept and prednisone. PAST MEDICAL HISTORY: Achilles tendon rupture, rotator cuff repair, elbow injury, vocal cord cancer, status post radiation, bilateral dacryoplasty, coronary artery disease post GA, coronary stents, anemia, hiatal hernia, gastroesophageal reflux, polymyalgia rheumatica, BPH, depression, obstructive [facility] [address] [place] [address] CONSULTATION Name: MONIQUE GOFF Room #: 349-I [facility] IN [facility].#: [id number] Admission: 10/14/19 Attend Phys: Austin Tian MD Discharge: Date of : 33 Report #: [id number] sleep apnea, hypertension, hyperlipidemia. FAMILY HISTORY: No tuberculosis. SOCIAL HISTORY: Past smoker weekly alcohol intake. PHYSICAL EXAMINATION: VITAL SIGNS: Afebrile, hemodynamically stable. GENERAL: Alert and cooperative and pleasant. Pulse was 99, respirations 18, blood pressure 157/86. He is on 2 liters of oxygen per nasal cannula. SKIN: Without rash or decubitus. No palpable adenopathy was of normal weight. EYES: Without scleral icterus. MOUTH: Without mucositis. NECK: Supple, no thyromegaly or mass. LUNGS: Posterior crackles, greatest in the left base posteriorly. HEART: Regular without appreciable murmur, gallop or rub. Left chest pacemaker pocket without swelling or erythema. ABDOMEN: Soft and nontender. No hepatosplenomegaly or mass. GENITOURINARY: External genitalia without mass or lesion. RECTAL: Not performed. BACK: Nontender along the spine, no CVA tenderness. EXTREMITIES: Without clubbing, cyanosis or edema. NEUROLOGIC: Nonfocal including cranial nerves, strength in upper and lower extremities as well as sensation upper and lower extremities. Mood was normal without anxiety or depression. LABORATORY STUDIES: Reviewed. MICROBIOLOGY: Reviewed. Chest x-ray was reviewed and discussed with Pulmonary Medicine. 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 He is immunosuppressed on prednisone and CellCept. Underlying cardiomyopathy. Considerations include viral etiology. We are currently experiencing coronavirus epidemic as well as influenza in the region. Bacterial pneumonia also considered. Given that his is also ill, would make mycobacterial and fungal infections less likely. Pneumocystis again would be less likely given this scenario. RECOMMENDATIONS: We will continue with broad antibiotic coverage. We will obtain sputum culture, blood culture, urine antigen and viral PCR testing. Lower his immunosuppression as much as possible. I discussed the case in detail [address] [address] CONSULTATION Name: MONIQUE GOFF Room #: 349-I ADM IN .R.#: [id number] Admission: 10/14/19 Attend Phys: Austin Tian MD Discharge: Date of : 33 Report #: [id number] with the patient's family, Pulmonary Medicine and nursing and infection control. We will also place a call to [place] radio station audio engineer. <ELECTRONICALLY SIGNED> By: Llye Jones MD 10/16/19 1246 2046 2111 Lyle Jones MD /nt
[2019-10-16 14:30] VITALS: BP 124/75
[2019-10-16 17:14] VITALS: BP 124/75
== END 2019-10-16 17:35 | disposition home or self-care (01) | DRG 194 ==
LOC: ER 08:47 → EROBS 10:58 → 3W 10:58
PROVIDERS: Emergency Medicine; ADMIT Family Medicine
PROC: 5A09357 Assistance with Respiratory Ventilation, Less than 24 Consecutive Hours, Continuous Positive Airway Pressure (ICD-10-PCS; principal; 2019-10-14)
PROC: 5A09357 Assistance with Respiratory Ventilation, Less than 24 Consecutive Hours, Continuous Positive Airway Pressure (ICD-10-PCS; 2019-10-15)
DX: J18.9 Pneumonia, unspecified organism (principal); I42.9 Cardiomyopathy, unspecified; K21.9 Gastro-esophageal reflux disease without esophagitis; F32.9 Major depressive disorder, single episode, unspecified; N40.0 Benign prostatic hyperplasia without lower urinary tract symptoms; E78.5 Hyperlipidemia, unspecified; R00.0 Tachycardia, unspecified; I28.8 Other diseases of pulmonary vessels; I25.10 Atherosclerotic heart disease of native coronary artery without angina pectoris; E78.00 Pure hypercholesterolemia, unspecified; M35.3 Polymyalgia rheumatica; G47.33 Obstructive sleep apnea (adult) (pediatric); I05.2 Rheumatic mitral stenosis with insufficiency; I11.0 Hypertensive heart disease with heart failure; J84.10 Pulmonary fibrosis, unspecified; I50.9 Heart failure, unspecified; J22 Unspecified acute lower respiratory infection; Z95.5 Presence of coronary angioplasty implant and graft; I25.2 Old myocardial infarction; Z87.891 Personal history of nicotine dependence; Z85.21 Personal history of malignant neoplasm of larynx; Z92.3 Personal history of irradiation; Z79.82 Long term (current) use of aspirin; Z79.899 Other long term (current) drug therapy
CPT/HCPCS: 10879

== ENCOUNTER → 2019-12-07 | Outpatient (CLI) | payer OTHER, MEDICARE ==
[~2019-12-07] VITALS: Ht 167.6 cm; Wt 67.7 kg
[~2019-12-07] MED LIST changes: +AZITHROMYCIN500 MG PO; +CEFDINIR300 MG PO; +GUAIFEN-CODEINE10 ML PO
--- NOTE | ~2019-12-07 | HPC ---
[facility] [place] [address] PAIN MANAGEMENT CONSULTATION Name: MONIQUE GOFF Eda Room #: REG YASH Aleida.#: [id number] Admission: 12/07/19 Attend Phys: Wero Das DO Discharge: Date of : 31 Report #: [id number] THIS REPORT FOR: cc: Austin Tian MD, Neal A. MD Johnson, James E. DO ~ CC: Wero Tian MD DATE OF SERVICE: 12/07/2019 REFERRING PHYSICIAN: Austin Tian MD CHIEF COMPLAINT: Low back pain, bilateral lower extremity pain with paresthesias, right greater than left. HISTORY OF PRESENT ILLNESS: As you know, the patient is a very pleasant 84-year-old male who returns today in followup visit requesting to undergo lumbar epidural injection under fluoroscopic guidance. The patient, as you are aware, was recently hospitalized for an upper respiratory tract infection. He was negative for Haemophilus, negative for Strep pneumoniae or mycoplasma pneumoniae. There was sent labs for COVID-19, but they are not reported. He was kept in isolation and treated here in the hospital, then discharged back to his independent living facility. The patient reports that his who is also sick at this time with similar upper respiratory issues. The patient had been advised when he contacted our clinic to make an appointment that he is at high risk due to his age and his recent hospitalization based on ALEX guidelines to undergo epidural injection and in this time of COVID-19 pandemic period, there is a high likelihood the patient could reduce his immune response and thus be more susceptible to gerard COVID-19 as well as potentially exacerbating his current symptoms if they are related to COVID-19. The patient reported that he understood his risks and made today's appointment to undergo lumbar epidural injection to address his axial back pain and lower extremity symptoms, which are debilitating to him. ALLERGIES: No known drug allergies. CURRENT MEDICATIONS: Prednisone 5 mg 1-1/2 tabs p.o. daily, atenolol 25 mg per day, omeprazole 20 mg per day, ferrous sulfate 325 mg per day, trospium chloride 20 mg once a day, sertraline 25 mg per day, finasteride 5 mg per day, CellCept 500 mg 3 tabs twice a day, trazodone 50 mg once a day, rosuvastatin 10 mg once a day, aspirin 81 mg per day. SOCIAL HISTORY: The patient denies tobacco, alcohol, IV or illicit drug use. He is retired, retired years ago, [place] [address] PAIN MANAGEMENT CONSULTATION Name: MONIQUE GOFF Room #: REG CLI Clarisa#: [id number] Admission: 12/07/19 Attend Phys: Wero Das DO Discharge: Date of : 31 Report #: [id number] IMAGING: No new imaging available. PQRS: The patient has known arthritic changes of the cervical spine, lumbar spine, bilateral hips and knees. No rheumatoid arthritis. He places current pain score anywhere from 8/10 to 9/10. He is a fall risk, but has not had a fall in last 3 months. He does utilize a roller walker for ambulation. He is not on blood thinners, nor is he treated for hypertension. He is not on chronic opioids and has a low opiate addiction potential based on our testing device. Pain impact today 35/70, moderate interference of daily activities secondary to pain. PHYSICAL EXAMINATION: VITAL SIGNS: Blood pressure 118/61, pulse 69, respiratory rate 14 and unlabored. The patient is 100% on room air. Height 5 feet 6 inches tall, weight 149.2 pounds, BMI calculated 24.1. GENERAL: Well-developed, well-nourished, well-hydrated 84-year-old male appearing stated age. Pain is rated anywhere from 8-9/10. HEENT: Normocephalic, atraumatic. Pupils equal, round, reactive to light. Speech is fluent. EXTREMITIES: Show no clubbing, no cyanosis, no edema. MUSCULOSKELETAL: Lower extremity strength appears symmetrical, but deconditioned bilaterally. Seated straight leg raising negative. Supine straight leg raising positive on the right. Greyson test is negative. Modified Gaenslen's positive for axial low back pain. Stance is forward flex lumbar spine, loss of lordotic curvature. Pain is elicited with lumbar provocation testing. ASSESSMENT: 1. Symptomatic lumbar radiculopathy. 2. 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 3. Displacement of lumbar intervertebral disk with radiculopathy. 4. Lumbosacral spondylosis with radiculopathy. 5. Lateral recess stenosis. 6. Neural foraminal stenosis. 7. Facet arthropathy of the lumbar spine. 8. Lumbar degeneration. 9. Chronic intractable pain. PLAN: 1. The patient returns today in followup visit, where we have discussed at length his risk of undergoing a lumbar epidural injection based on ALEX guidelines in regards to the COVID-19 virus. It has been noted that COVID-19 contraction can be increased by steroid exposure, reducing one's autoimmunity and thus making exposure more prevalent. There is also a possibility that a steroid exposure with current and active symptoms may exacerbate symptoms [address] [address] PAIN MANAGEMENT CONSULTATION Name: MONIQUE GOFF [id number] Admission: 12/07/19 Attend Phys: Wero Das DO Discharge: Date of : 33 Report #: [id number] significantly. The patient states he understood and wishes to proceed with the epidural injection. 2. The patient and I did discuss that he will need to begin limiting his activities given his age of 84 and his findings of his low back consistent with central canal stenosis. We recommend the patient adjust his lifestyle and daily activities to reduce the potential for exacerbating his symptoms as surgical options do not exist for this patient given his age and underlying medical history. This leaves us with epidural injections on a periodic basis and possible discussion of medication management, though once again not an optimal candidate for long-term medication therapy. The patient is agreeable with our plan today and understands that ultimately he needs to make adjustments in his daily lifestyle to address ongoing pain. 3. We will see the patient back in followup visit on an as needed basis for possible next in the series of epidural injections. We are hopeful the patient will see good and prolonged benefit with today's procedure. PROCEDURE NOTE: L5-S1 paramedian epidural steroid injection under fluoroscopic guidance. After obtaining written consent, the patient was taken back to fluoroscopy suite, placed in prone position with pillow under abdomen to decrease lumbar lordosis. Skin overlying lumbosacral area then prepped and draped in aseptic fashion. Lumbar intervertebral spaces were identified by AP fluoroscopy. Skin and subcutaneous tissue overlying target site of injection was anesthetized with 3 mL of 1% lidocaine. A 20-gauge 3.5 inch Tuohy needle advanced under fluoroscopic guidance towards the epidural space using a paramedian approach. Epidural space identified using loss of resistance to air technique. After negative aspiration for heme or cerebrospinal fluid, 1 mL of Omnipaque injected. Lumbar epidurogram confirmed using both AP and lateral fluoroscopy. After negative aspiration for heme or cerebrospinal fluid, 5 mL of a solution containing 2 mL 40 mg per mL, 80 mg total triamcinolone along with 3 mL of lidocaine 1% injected slowly. Needle then retracted approximately half way, flushed with 1 mL of 1% lidocaine and then removed. Sterile bandage placed over injection site. There were no new motor deficits present in the lower extremities following procedure. The patient tolerated procedure well, carefully escorted to recovery room in stable condition. No apparent complications. After meeting discharge criteria, the patient discharged home. By: [id number] Wero Das DO /nt
[2019-12-07 08:54] VITALS: BP 118/61
--- NOTE | 2019-12-07 09:12 | NUR ---
Pain Clinic Assessment: 1. History of Osteoarthritis: SPINE History of Rheumatoid Arthritis: DENIES 2. Height: 5 ft. 6 in. 167.6 cm. Weight: 149.2 lb. oz. 67.677 kg. Patient's BMI: 24.1 3. Vital Signs: BP: 118/61 Pulse: 69 Resp: 14 Temp: 02 Sat: 100 ECG Mon: 4. Pain Intensity: 8-9 5. Fall Risk: Dizziness: N Needs help standing or walking: Y Fallen in the last 3 months: N Fall risk comments: 6. Patient on Blood Thinner: None 7. History of Hypertension: N 8. Opioid Therapy greater than 6 weeks: N Opiate Contract Signed: 9. Risk Assessment Tool Provided: LOW RISK O/3 10. Functional Assessment Tool: 11. Recreational Drug Use: Never Drug Type: Tobacco Use: Former Smoker Tobacco Type: Amount or Packs/day: How Many Years: Alcohol Use: Yes Frequency: Quant:
--- NOTE | 2019-12-07 15:53 | NUR ---
MEDICATIONS CONFIRMED BY PATIENT/STATES HE DOES NOT HAVE A LIST AND CAN NOT REMEMBER FOR SURE WHICH MEDICATIONS HE IS ON.
== END | disposition home or self-care (01) ==
LOC: PAIN 06:44
DX: M51.16 Intervertebral disc disorders with radiculopathy, lumbar region (principal); M48.061 Spinal stenosis, lumbar region without neurogenic claudication; M47.27 Other spondylosis with radiculopathy, lumbosacral region; M47.26 Other spondylosis with radiculopathy, lumbar region; G89.29 Other chronic pain; I10 Essential (primary) hypertension; M19.90 Unspecified osteoarthritis, unspecified site; Z98.890 Other specified postprocedural states; Z79.899 Other long term (current) drug therapy

== ENCOUNTER → 2020-01-28 | Outpatient (CLI) | payer OTHER, MEDICARE | LOC: SJCVC 12:25 | PROVIDERS: ATTEND Internal Medicine Cardiovascular Disease | DX: I45.10 Unspecified right bundle-branch block (principal); I11.9 Hypertensive heart disease without heart failure; R00.1 Bradycardia, unspecified; R94.31 Abnormal electrocardiogram [ECG] [EKG]; I25.10 Atherosclerotic heart disease of native coronary artery without angina pectoris; I10 Essential (primary) hypertension; E78.00 Pure hypercholesterolemia, unspecified; R00.0 Tachycardia, unspecified; I35.0 Nonrheumatic aortic (valve) stenosis; I34.2 Nonrheumatic mitral (valve) stenosis; E78.5 Hyperlipidemia, unspecified; Z79.82 Long term (current) use of aspirin; Z79.899 Other long term (current) drug therapy; Z87.891 Personal history of nicotine dependence ==

== ENCOUNTER → 2020-06-26 | Outpatient (CLI) | payer OTHER, MEDICARE | LOC: SJCVCIMAG 08:46 | PROVIDERS: ATTEND Internal Medicine Cardiovascular Disease | DX: I08.0 Rheumatic disorders of both mitral and aortic valves (principal); I11.9 Hypertensive heart disease without heart failure; I25.10 Atherosclerotic heart disease of native coronary artery without angina pectoris; Z79.82 Long term (current) use of aspirin; Z79.899 Other long term (current) drug therapy ==

== ENCOUNTER → 2020-09-08 | Outpatient (CLI) | payer OTHER, MEDICARE | LOC: SJCVC 14:45 | PROVIDERS: ATTEND Internal Medicine Cardiovascular Disease | DX: R94.31 Abnormal electrocardiogram [ECG] [EKG] (principal); I45.10 Unspecified right bundle-branch block; I11.9 Hypertensive heart disease without heart failure; I25.118 Atherosclerotic heart disease of native coronary artery with other forms of angina pectoris; I35.0 Nonrheumatic aortic (valve) stenosis; E78.00 Pure hypercholesterolemia, unspecified; J84.9 Interstitial pulmonary disease, unspecified; K21.9 Gastro-esophageal reflux disease without esophagitis; G47.33 Obstructive sleep apnea (adult) (pediatric); M81.0 Age-related osteoporosis without current pathological fracture; D64.9 Anemia, unspecified; E78.5 Hyperlipidemia, unspecified; I25.2 Old myocardial infarction; E55.9 Vitamin D deficiency, unspecified; Z87.891 Personal history of nicotine dependence; Z72.89 Other problems related to lifestyle; Z79.82 Long term (current) use of aspirin; Z79.899 Other long term (current) drug therapy ==

== ENCOUNTER → 2021-04-19 | Outpatient (CLI) | payer OTHER, MEDICARE | LOC: SJCVC 13:28 | PROVIDERS: ATTEND Internal Medicine Cardiovascular Disease | DX: R94.31 Abnormal electrocardiogram [ECG] [EKG] (principal); I11.9 Hypertensive heart disease without heart failure; I45.2 Bifascicular block; I25.10 Atherosclerotic heart disease of native coronary artery without angina pectoris; E78.00 Pure hypercholesterolemia, unspecified; I45.10 Unspecified right bundle-branch block; G47.33 Obstructive sleep apnea (adult) (pediatric); I34.2 Nonrheumatic mitral (valve) stenosis; R00.0 Tachycardia, unspecified; I35.0 Nonrheumatic aortic (valve) stenosis; E78.5 Hyperlipidemia, unspecified; I25.2 Old myocardial infarction; E55.9 Vitamin D deficiency, unspecified; Z99.89 Dependence on other enabling machines and devices; Z87.891 Personal history of nicotine dependence; Z72.89 Other problems related to lifestyle; Z79.82 Long term (current) use of aspirin; Z79.899 Other long term (current) drug therapy ==